=== PATIENT | male | born 1965 | race Hispanic/Latino ===

== ENCOUNTER 2017-06-23 19:24 | Inpatient (IN) | payer MEDICAID ==
--- NOTE | 2017-06-23 21:26 | C.PDOC ---
History Of Present Illness <Marcy Devries - Last Filed: 06/23/17 21:51> <Moriah Gerardo - Last Filed: 06/24/17 05:23> CC: "Alcohol detox" HPI: 51 year old male with past medical history of HTN as a child presents to the ED because he would like to detox from alcohol. Patient states he has been an alcoholic for about 30 years but was sober for about 5 years. He states he recently started binge drinking again these past few weeks. His last drink was this morning. He states he drank about 6 cans of malt liquor and 1 bottle of vodka. He stated he could not quantify on average how much he drinks. He denies seizures from withdrawal but states he has been to the hospital due to his drinking in the past because he has been found passed out. He states he has been vomiting today the last time he vomited was about 15 minutes ago. He denies blood in his vomit. He denies chest pain, palpitations, shortness of breath, diarrhea or constipation. PMD: denies Past Medical History: HTN as a child - has never been told he has HTN as an adult that he is aware of Past Surgical History: bilateral retinal detachment surgery Medications: vitamins. 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 (Marcy Devries) History Per: Patient History/Exam Limitations: no limitations Onset/Duration Of Symptoms: Hrs Current Symptoms Are (Timing): Still Present Modifying Factor(s): Alcohol <Marcy Devries - Last Filed: 06/23/17 21:51> <Moriah Gerardo - Last Filed: 06/24/17 05:23> Chief Complaint (Nursing): Substance Abuse Past Medical History - Medical History PMH: HTN - Social History Hx Alcohol Use: Yes Hx Substance Use: No <Marcy Devries - Last Filed: 06/23/17 21:51> Surgical History: No Surg Hx Family History: States: No Known Family Hx - Social History Hx Alcohol Use: Yes Hx Substance Use: No - Immunization History Hx Tetanus Toxoid Vaccination: No Hx Influenza Vaccination: No Hx Pneumococcal Vaccination: No <Moriah Gerardo - Last Filed: 06/24/17 05:23> Vital Signs: Last Vital Signs Temp 98.1 F 06/23/17 20:49 Pulse 113 H 06/23/17 20:49 Resp 20 06/23/17 20:49 BP 145/96 H 06/23/17 20:49 Pulse Ox 97 06/23/17 21:55 Review Of Systems Constitutional: Negative for: Fever, Chills Cardiovascular: Negative for: Chest Pain, Palpitations Respiratory: Negative for: Cough, Shortness of Breath Gastrointestinal: Positive for: Nausea, Vomiting. Negative for: Diarrhea, Constipation Genitourinary: Negative for: Dysuria Neurological: Negative for: Seizures, Dizziness <Marcy Devries - Last Filed: 06/23/17 21:51> Physical Exam - Physical Exam Appears: In Acute Distress Skin: Normal Color Head: Atraumatic Eye(s): bilateral: Normal Inspection, PERRL, EOMI Oral Mucosa: Dry Tongue: Normal Appearing, Other (negative for tongue fisculations ) Cardiovascular: Rhythm Regular, Other (tachycardia ) Respiratory: Normal Breath Sounds, No Decreased Breath Sounds, No Accessory Muscle Use, No Rales, No Rhonchi, No Stridor, No Wheezing Gastrointestinal/Abdominal: Normal Exam, Bowel Sounds (normal), Soft, No Tenderness, No Distention, No Guarding, No Ascites Extremity: No Tenderness, No Pedal Edema, No Calf Tenderness Neurological/Psych: Oriented x3, Normal Speech, Normal Cognition, Normal Cranial Nerves, Eyes Open With Command <Marcy Devries - Last Filed: 06/23/17 21:51> ED Course And Treatment O2 Sat by Pulse Oximetry: 97 <Marcy Devries S. - Last Filed: 06/23/17 21:51> - Laboratory Results Result Diagrams: 06/23/17 22:47 06/23/17 22:47 <Moriah Gerardo - Last Filed: 06/24/17 05:23> Medical Decision Making <Marcy Devries - Last Filed: 06/23/17 21:51> <Moriah Gerardo - Last Filed: 06/24/17 05:23> Medical Decision Making: Alcohol Withdrawal - f/u cbc, cmp, mag, phos - f/u EKG - 1 bag of Mag ordered - NS 1L bolus ordered - Ativan 1mg IV - Banana bag @250cc/hr - Compazine 10mg IV (Marcy Devries) Disposition <Marcy Devries - Last Filed: 06/23/17 21:51> - Disposition Disposition Time: 05:23 <Moriah Gerardo - Last Filed: 06/24/17 05:23> - Disposition Disposition: HOSPITALIZED Condition: FAIR - Clinical Impression Clinical Impression: Alcohol abuse, Alcohol withdrawal
[2017-06-23] MEDS ORDERED: Multivitamin (MVI) 10 ML, Thiamine 100 MG, Folic Acid 1 MG in Sodium Chloride 0.9% 1,00... IV ONE (21:31)
[2017-06-23] MEDS ORDERED: Magnesium Sulfate 1 gm in D5W 1 GM/100 ML BAG IVPB ONE ×2 (21:32→22:22)
[2017-06-23] MEDS ORDERED: Sodium Chloride 0.9% 1,000 ML IV ONE (21:51)
[2017-06-23 22:52] LABS: BASO % 0.5 % (0.0-2.0); HEMOGLOBIN 15.4 g/dL (12.0-18.0); LYMPH # 1.2 K/uL (1.0-4.3); LYMPH % 21.6 % (20.0-40.0); MEAN CELL VOLUME 88.7 fL (80.0-94.0); MEAN CORPUSCULAR HEMOGLOBIN 31.5 pg (27.0-31.0); MEAN CORPUSCULAR HGB CONC 35.5 g/dL (33.0-37.0); MEAN PLATELET VOLUME 7.2 fL (7.2-11.7); MONO # 0.4 K/uL (0.0-0.8); MONO % 6.7 % (0.0-10.0); NEUT % 71.2 % (50.0-75.0); RBC 4.88 Mil/uL (4.40-5.90); RED CELL DISTRIBUTION WIDTH 13.1 % (11.5-14.5); WHITE BLOOD COUNT 5.7 K/uL (4.8-10.8)
[2017-06-23 23:07] LABS: ALB/GLOB RATIO 1.2 (1.0-2.1); ALT/SGPT 100 U/L (21-72); AST/SGOT 98 U/L (17-59); BLOOD UREA NITROGEN 14 mg/dL (9-20); CALCIUM 8.3 mg/dl (8.6-10.4); GFR AFRICAN-AMERICAN > 60; GFR NON-AFRICAN AMERICAN > 60; MAGNESIUM 1.9 mg/dL (1.6-2.3)
[2017-06-24] MEDS: Multivitamin (MVI) 10 ML, Thiamine 100 MG, Folic Acid 1 MG in Sodium Chloride 0.9% 1,00... IV ONE ×2 (02:11→10:50)
--- NOTE | 2017-06-24 04:37 | CP.PCM.HP ---
<RosalineShayy coulterri LavonneAylin - Last Filed: 06/24/17 04:53> History of Present Illness - History of Present Illness History of Present Illness: HPI: Patient is a 51 year old male with a past medical history of HTN and alcoholism, who presents for alcohol detox. Patient reports drinking "6-12 cans of malt liquor and a couple of pints of vodka" daily. He has been drinking heavily for over 30 years, but has increased his drinking over the past 2 weeks. His last drink was the in early morning before going to the hospital. Patient's longest period of sobriety was 5 years. Patient reports going to rehab approximately 8 times in the past. Patient admits to nausea, vomiting, constipation, and feeling "out of it". Patient denies tremors, hallucinations, chest pain, abdominal pain, shortness of breath, palpitations, headaches, fevers, chills. PMD: none PMHx: HTN (does not take medication because he does not like the way he feels); retinal detachment x2 Surg Hx: retinal detachment x2 (1978); knee surgery (1977) FamHx: denies SocHx: denies tobacco and drug use; heavy ETOH user for 30+ years. 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 Allergies: NKDA Medications: vitamins and supplements (vit C, multivitamins, fish oil, CoQ10) Present on Admission - Present on Admission Any Indicators Present on Admission: No Review of Systems - Constitutional Constitutional: absent: Chills, Fever, Headache, Weakness - EENT Ears: absent: Dizziness - Cardiovascular Cardiovascular: absent: Chest Pain, Dyspnea, Lightheadedness, Palpitations - Respiratory Respiratory: absent: Cough, Dyspnea - Gastrointestinal Gastrointestinal: Constipation, Nausea, Vomiting. absent: Abdominal Pain, Diarrhea - Genitourinary Genitourinary: absent: Dysuria, Hematuria, Urinary Frequency - Integumentary Integumentary: absent: Rash - Neurological Neurological: absent: Dizziness, Headaches, Tremor, Weakness - Psychiatric Psychiatric: absent: Hallucinations Past Patient History - Past Social History Smoking Status: Never Smoked - CARDIAC Hx Hypertension: Yes - PSYCHIATRIC Hx Substance Use: No - ANESTHESIA Hx Anesthesia: No Meds Allergies/Adverse Reactions: Allergies Allergy/AdvReac Type Severity Reaction Status Date / Time No Known Allergies Allergy Verified 06/23/17 20:49 Physical Exam - Head Exam Head Exam: ATRAUMATIC, NORMAL INSPECTION - Eye Exam Eye Exam: EOMI, Normal appearance, PERRL - ENT Exam ENT Exam: Mucous Membranes Dry - Respiratory Exam Respiratory Exam: Clear to Auscultation Bilateral, NORMAL BREATHING PATTERN. absent: Rhonchi, Wheezes, Respiratory Distress, Stridor - Cardiovascular Exam Cardiovascular Exam: Tachycardia, +S1, +S2 - GI/Abdominal Exam GI & Abdominal Exam: Normal Bowel Sounds, Soft. absent: Distended, Firm, Tenderness - Extremities Exam Extremities exam: Positive for: normal inspection, pedal pulses present. Negative for: pedal edema - Neurological Exam Neurological exam: Oriented x3 Additional comments: Tremors - Psychiatric Exam Psychiatric exam: Flat Affect - Skin Skin Exam: Dry, Intact, Normal Color, Warm Results - Vital Signs Recent Vital Signs: Last Vital Signs Temp 98.1 F 06/23/17 20:49 Pulse 113 H 06/23/17 20:49 Resp 20 06/23/17 20:49 BP 145/96 H 06/23/17 20:49 Pulse Ox 97 06/23/17 21:55 - Labs Result Diagrams: 06/23/17 22:47 06/23/17 22:47 Labs: Laboratory Results - last 24 hr 06/23/17 06/23/17 22:47 22:47 WBC 5.7 RBC 4.88 Hgb 15.4 Hct 43.3 MCV 88.7 MCH 31.5 H MCHC 35.5 RDW 13.1 Plt Count 185 MPV 7.2 Neut % (Auto) 71.2 Lymph % (Auto) 21.6 [place] % (Auto) 6.7 Eos % (Auto) 0.0 Baso % (Auto) 0.5 Neut # (Auto) 4.0 Lymph # (Auto) 1.2 [place] # (Auto) 0.4 Eos # (Auto) 0.0 Baso # (Auto) 0.0 Sodium 135 Potassium 3.3 L Chloride 91 L Carbon Dioxide 25 Anion Gap 23 H BUN 14 Creatinine 0.8 Est GFR ( Amer) > 60 Est GFR (Non-Af Amer) > 60 Random Glucose 128 H Calcium 8.3 L Phosphorus 4.0 Magnesium 1.9 Total Bilirubin 0.6 AST 98 H ALT 100 H Alkaline Phosphatase 98 Total Protein 7.5 Albumin 4.0 Globulin 3.5 Albumin/Globulin Ratio 1.2 Assessment & Plan (1) Alcohol abuse Assessment and Plan: [facility] protocol Psychiatry consulted for detox, help appreciated In the ED, Mg 1gm IV, Zofran 4mg IV, Prochlorperazine 10mg IV, IVF given once. Ativan 5-day taper started on 06/24/16 Banana Bag Zofran 4mg IV Q6 prn for nausea/vomiting NS@100mls/hr Aspiration precaution Fall precaution Status: Acute (2) Prophylactic measure Assessment and Plan: SCDs Protonix 40mg PO daily Aspiration/fall precaution Regular diet Status: Acute <Tristan Johnson - Last Filed: 06/24/17 06:31> Results - Vital Signs Recent Vital Signs: Last Vital Signs Temp 98 F 06/24/17 06:17 Pulse 100 H 06/24/17 06:17 Resp 20 06/24/17 06:17 BP 149/82 06/24/17 06:17 Pulse Ox 93 L 06/24/17 06:17 - Labs Result Diagrams: 06/24/17 05:31 06/24/17 05:31 Labs: Laboratory Results - last 24 hr 06/23/17 06/23/17 06/24/17 22:47 22:47 05:31 WBC 5.7 5.4 RBC 4.88 4.47 Hgb 15.4 13.8 Hct 43.3 39.6 MCV 88.7 88.5 MCH 31.5 H 30.9 MCHC 35.5 34.9 RDW 13.1 13.0 Plt Count 185 151 MPV 7.2 7.0 L Neut % (Auto) 71.2 64.9 Lymph % (Auto) 21.6 24.7 [place] % (Auto) 6.7 9.9 Eos % (Auto) 0.0 0.1 Baso % (Auto) 0.5 0.4 Neut # (Auto) 4.0 3.5 Lymph # (Auto) 1.2 1.3 [place] # (Auto) 0.4 0.5 Eos # (Auto) 0.0 0.0 Baso # (Auto) 0.0 0.0 Sodium 135 Potassium 3.3 L Chloride 91 L Carbon Dioxide 25 Anion Gap 23 H BUN 14 Creatinine 0.8 Est GFR ( Amer) > 60 Est GFR (Non-Af Amer) > 60 Random Glucose 128 H Calcium 8.3 L Phosphorus 4.0 Magnesium 1.9 Total Bilirubin 0.6 AST 98 H ALT 100 H Alkaline Phosphatase 98 Total Protein 7.5 Albumin 4.0 Globulin 3.5 Albumin/Globulin Ratio 1.2 06/24/17 05:31 WBC RBC Hgb Hct MCV MCH MCHC RDW Plt Count MPV Neut % (Auto) Lymph % (Auto) [place] % (Auto) Eos % (Auto) Baso % (Auto) Neut # (Auto) Lymph # (Auto) [place] # (Auto) Eos # (Auto) Baso # (Auto) Sodium 135 Potassium 3.5 L Chloride 95 L Carbon Dioxide 27 Anion Gap 17 BUN 13 Creatinine 0.7 L Est GFR ( Amer) > 60 Est GFR (Non-Af Amer) > 60 Random Glucose 106 Calcium 8.0 L Phosphorus Magnesium Total Bilirubin 0.8 AST 79 H ALT 85 H Alkaline Phosphatase 82 Total Protein 6.6 Albumin 3.5 Globulin 3.1 Albumin/Globulin Ratio 1.1 Assessment & Plan - Date & Time Date: 06/24/17 (I have seen and examined the patient. I agree with the findings and plan of care as documented by Dr. Faustin. Patient with alcohol abuse. [facility] protocol. Consult to psych for eventual detox. Monitor for acute changes.) Time: 06:30 Attending/Attestation - Attestation I have personally seen and examined this patient.: Yes I have fully participated in the care of the patient.: Yes I have reviewed all pertinent clinical information: Yes
[2017-06-24 05:45] LABS: ALB/GLOB RATIO 1.1 (1.0-2.1); ALBUMIN 3.5 g/dL (3.5-5.0); ALT/SGPT 85 U/L (21-72); AST/SGOT 79 U/L (17-59); BLOOD UREA NITROGEN 13 mg/dL (9-20); GFR AFRICAN-AMERICAN > 60; GFR NON-AFRICAN AMERICAN > 60
[2017-06-24 05:51] LABS: BASO % 0.4 % (0.0-2.0); EOS % 0.1 % (0.0-4.0); HEMOGLOBIN 13.8 g/dL (12.0-18.0); LYMPH # 1.3 K/uL (1.0-4.3); LYMPH % 24.7 % (20.0-40.0); MEAN CELL VOLUME 88.5 fL (80.0-94.0); MEAN CORPUSCULAR HEMOGLOBIN 30.9 pg (27.0-31.0); MEAN CORPUSCULAR HGB CONC 34.9 g/dL (33.0-37.0); MONO # 0.5 K/uL (0.0-0.8); MONO % 9.9 % (0.0-10.0); NEUT # 3.5 K/uL (1.8-7.0); NEUT % 64.9 % (50.0-75.0); NRBC % 0.1 % (0.0-2.0); RBC 4.47 Mil/uL (4.40-5.90); WHITE BLOOD COUNT 5.4 K/uL (4.8-10.8)
[2017-06-24] MEDS ORDERED: Potassium Chloride 20 mEq ER Tab PO ONE (07:20)
[2017-06-24] MEDS: Enoxaparin 40 mg Syringe SC SCH (09:33)
[2017-06-24] MEDS: Multiple Vitamins Tab PO SCH (09:33)
[2017-06-24] MEDS: Pantoprazole 40 mg EC Tab PO SCH (09:33)
[2017-06-24 10:41] LABS: HEPATITIS B SURFACE AG Negative (NEGATIVE)
[2017-06-24 10:47] LABS: HEPATITIS A IGM NEGATIVE (NEGATIVE); HEPATITIS B CORE AB NEGATIVE (NEGATIVE)
[2017-06-24 10:59] LABS: HEPATITIS C ANTIBODY NEGATIVE (NEGATIVE)
--- NOTE | 2017-06-24 11:39 | CP.PCM.PN ---
Subjective - Date & Time of Evaluation Date of Evaluation: 06/24/17 Time of Evaluation: 11:30 - Subjective Subjective: Medical Attending Note: Patient seen and examined. Patient denies headache, denies chest pain, denies palpitations, denies cough, denies abdominal pain, reports constipation, denies tremors, reports last drink was 24 hours ago, denies history of withdrawal seizures, denies BRBPR. Objective - Vital Signs/Intake and Output Vital Signs (last 24 hours): Temp Pulse Resp BP Pulse Ox 98.2 F 109 H 21 155/84 H 96 06/24/17 09:10 06/24/17 09:10 06/24/17 09:10 06/24/17 09:10 06/24/17 09:10 - Medications Medications: Current Medications Enoxaparin Sodium (Lovenox) 40 mg SC DAILY [facility] Last Admin: 06/24/17 09:33 Dose: 40 mg Folic Acid (Folic Acid) 1 mg PO DAILY [facility] Last Admin: 06/24/17 09:32 Dose: 1 mg Multivitamins/Vitamin C 10 ml/Thiamine HCl 100 mg/ Folic Acid 1 mg/ Sodium Chloride 1,011.2 mls @ 100 mls/hr IV .Q10H7M ONE Stop: 06/24/17 20:06 Last Admin: 06/24/17 10:50 Dose: 100 mls/hr Lorazepam (Ativan) 2 mg IVP Q4H [facility] PRN Reason: Taper Stop: 06/29/17 01:59 Last Admin: 06/24/17 09:33 Dose: 2 mg Multivitamins (Hexavitamin) 1 tab PO DAILY [facility] Last Admin: 06/24/17 09:33 Dose: 1 tab Ondansetron HCl (Zofran Inj) 4 mg IVP Q6 PRN PRN Reason: Nausea/Vomiting Pantoprazole Sodium (Protonix Ec Tab) 40 mg PO DAILY [facility] Last Admin: 06/24/17 09:33 Dose: 40 mg Thiamine HCl (Vitamin B1 Tab) 100 mg PO DAILY [facility] Last Admin: 06/24/17 09:32 Dose: 100 mg - Labs Labs: 06/24/17 05:31 06/24/17 05:31 - Constitutional Appears: Non-toxic, No Acute Distress - Head Exam Head Exam: NORMAL INSPECTION - Eye Exam Eye Exam: EOMI - ENT Exam ENT Exam: Mucous Membranes Moist - Respiratory Exam Respiratory Exam: Clear to Ausculation Bilateral, NORMAL BREATHING PATTERN. absent: Rales, Rhonchi, Wheezes - Cardiovascular Exam Cardiovascular Exam: REGULAR RHYTHM, +S1, +S2 - GI/Abdominal Exam GI & Abdominal Exam: Soft, Normal Bowel Sounds. absent: Distended, Firm, Guarding, Rigid, Tenderness, Rebound Additional comments: negative caballero's sign - Extremities Exam Extremities Exam: absent: Pedal Edema, Tenderness - Neurological Exam Neurological Exam: Alert, Awake, Oriented x3 Neuro motor strength exam: Left Upper Extremity: 5, Right Upper Extremity: 5, Left Lower Extremity: 5, Right Lower Extremity: 5 - Psychiatric Exam Psychiatric exam: Normal Affect, Normal Mood - Skin Skin Exam: Dry, Normal Color, Warm Assessment and Plan (1) Alcohol abuse Assessment & Plan: Ativan taper (Today is Day 1; active since 06/24/17) MVI 1 tab PO daily Folic acid 1 tab PO daily Thiamine 100mg PO daily Psychiatry on board Status: Acute (2) Alcohol withdrawal Assessment & Plan: Ativan taper (Today is Day 1; active since 06/24/17) MVI 1 tab PO daily Folic acid 1 tab PO daily Thiamine 100mg PO daily Psychiatry on board Status: Acute (3) Transaminitis Assessment & Plan: Hepatitis panel pending Abdominal US pending Status: Acute (4) Hypertension Assessment & Plan: Required Hydralazine 10mg IVX1 Start Hydralazine 10mg IVPQ6H PRN SBP<160 Status: Chronic (5) Hypokalemia Assessment & Plan: replete Status: Acute (6) Prophylactic measure Assessment & Plan: Lovenox 40mg subq daily Protonix 40mg PO daily Status: Acute
--- NOTE | 2017-06-24 15:12 | PCM.PSYCH ---
Initial Psychiatric Evaluation - Initial Psychiatric Evaluation Type of Admission: Voluntary Legal Status: Capacity Chief Complaint (in patient's own words): "I m feeling depressed." History of Present Illness and Precipitating Events: Patient is a 51 year old unemployed male, who lives in [place] with his partner, currently unemployed, came to the hospital seeking detox. Pt reports that he has been an alcoholic for about 30 years but was sober for about 5 years. He states he recently started binge drinking again these past few weeks. His last drink was yesterday morning. He states he drank about 6 cans of malt liquor and 1 bottle of vodka. He stated he could not quantify on average how much he drinks. He denies seizures from withdrawal but states he has been to the hospital due to his drinking in the past because he has been found passed out. He reports withdrawal symptoms from drinking including nausea , sweating, anxiety, tremors and headaches. Patient also reports depressed mood and feelings of hopelessness and helplessness. He also reports poor sleep and poor appetite. Patient remained guarded about suicidal ideations and any past suicidal history. However he denied any auditory or visual hallucinations or any persecutory delusions. Spoke with the partner, as per him, patient is becoming increasingly depressed and he is drinking increasing amount of alcohol and he is dangerous to himself. PMH: HTN Current Medications: Active Medications Generic Name Dose Route Start Last Admin Trade Name Freq PRN Reason Stop Dose Admin Enoxaparin Sodium 40 mg 06/24/17 10:00 06/24/17 09:33 Lovenox SC 40 mg DAILY CARYL Administration Folic Acid 1 mg 06/24/17 10:06/24/17 09:32 Folic Acid PO 1 mg DAILY CARYL Administration Hydralazine HCl 10 mg 06/24/17 12:00 06/24/17 13:49 Apresoline IVP 10 mg Q6H PRN Administration Systolic Blood Pressure Multivitamins/Vitamin C 10 ml/ 1,011.2 mls @ 100 mls/hr 06/24/17 10: 10:50 Thiamine HCl 100 mg/ Folic IV 06/24/17 20:06 100 mls/hr Acid 1 mg/ Sodium Chloride .Q10H7M ONE Administration Lorazepam 2 mg 06/24/17 02:00 06/24/17 13:48 Ativan IVP 06/29/17 01:59 2 mg Q4H CARYL Administration Taper Multivitamins 1 tab 06/24/17 10:00 06/24/17 09:33 Hexavitamin PO 1 tab DAILY CARYL Administration Ondansetron HCl 4 mg 06/24/17 01:48 Zofran Inj IVP Q6 PRN Nausea/Vomiting Pantoprazole Sodium 40 mg 06/24/17 10:00 06/24/17 09:33 Protonix Ec Tab PO 40 mg DAILY CARYL Administration Thiamine HCl 100 mg 06/24/17 10:00 06/24/17 09:32 Vitamin B1 Tab PO 100 mg DAILY CARYL Administration Past Psychiatric History - Past Psychiatric History Previous Treatment History: None Pertinent Medical Hx (Current Medical&Sleep Prob, Allergies): Allergies Allergy/AdvReac Type Severity Reaction Status Date / Time No Known Allergies Allergy Verified 06/23/17 20:49 No Known Home Med 06/23/17 Review of Systems - Review of Systems Systems not reviewed;Unavailable: Acuity of Condition All systems: reviewed and no additional remarkable complaints except - Neurological Neurological: UNREMARKABLE - Psychiatric Psychiatric: As Per HPI, Anxiety, Depression, Difficulty Concentrating, Hopelessness Mental Status Examination - Personal Presentation Personal Presentation: Looks stated age - Affect Affect: Constricted, Flat, Depressed - Motor Activity Motor Activity: Calm - Reliability in Providing Information Reliability in Providing Information: Poor, due to altered mood - Speech Speech: Organized - Mood Mood: Depressed, Anxious - Formal Thought Process Formal Thought Process: No Impairment - Obsessions/Compulsions Obsessions: No Compulsions: No - Cognitive Functions Orientation: Person, Place, Situation, Time Sensorium: Drowsy Attention/Concentration: Easily distracted Abstract Thinking: [place] Estimate of Intelligence: Below average Judgement: Imparied, as evidence by: Poor judgement, Imparied, as evidence by: Lack of insight into illness - Risk Risk: Withdrawal, Diminished functioning - Strength & Assets Inventory Strength & Assets Inventory: Family support DSM 5 DX - DSM 5 DSM 5 Diagnosis: Alcohol use d/o -severe Alcohol withdrawal- uncomplicated 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 - Recommended/Plan of Treatment Treatment Recommendations and Plan of Treatment: Alcohol use d/o -severe -CBT -Psychoeducation -Supportive therapy, individual therapy -Use [place] for abstinence Alcohol withdrawal- uncomplicated -CBT -Psychoeducation -Supportive therapy, individual therapy -Ativan Taper -Folic acid/thiamine/multivitamin 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
--- NOTE | 2017-06-24 15:32 | US ---
HISTORY: transaminits COMPARISON: None. TECHNIQUE: Sonographic evaluation of the abdomen. FINDINGS: LIVER: Measures 16.8 cm. Diffusely increased echogenicity of the liver parenchyma. Consistent with fatty infiltration. Smooth contour. No mass. No biliary ductal dilatation. GALLBLADDER: Unremarkable. No gallstones. COMMON BILE DUCT: Measures 4 mm. No stones. No dilatation. PANCREAS: Unremarkable as visualized. No mass. No ductal dilatation. RIGHT KIDNEY: Measures 11.2cm. Normal echogenicity. No calculus, mass, or hydronephrosis. LEFT KIDNEY: Measures 10.8cm. Normal echogenicity. No calculus or hydronephrosis. Simple cortical cyst mid left kidney, 1.2 x 1.3 x 1.5 cm. SPLEEN: Normal in size and contour. No mass. AORTA: No aneurysmal dilatation. IVC: Unremarkable. OTHER FINDINGS: None. IMPRESSION: Fatty infiltration of the liver. 1.5 cm simple left renal cortical cyst. No additional abnormality.
[2017-06-24] MEDS ORDERED: Aluminum Hydroxide/Magnesium Hydroxide Susp (30 mL) PO PRN (16:01)
--- NOTE | 2017-06-24 22:36 | PCM.BM ---
Treatment Plan Problems - Problems identified on initial assessmt Depression Date Initiated: 06/24/17 Time Initiated: 21:00 Assessment reference: NA Status: Active Substance Abuse Date Initiated: 06/24/17 Time Initiated: 21:00 Assessment reference: NA Status: Active Treatment assets and liabiliti Patient Assests: cooperative, educated, self-reliant, ADL independent, negotiates basic needs, cognitively intact Patient Liabilities: substance abuse (Alcohol) - Milieu Protocol Maintain good personal hygiene: daily Encourage regular showers, every shift Remind patient to perform daily oral care, every shift Assist patient to perform ADL's Conduct patient checks and document Observation sheet: Q15 minutes Maintain personal safety: every shift Educate patient to report safety concerns to staff, every shift Monitor environment for contraband/sharps Medication safety: Monitor for expected outcome, potential side effects: every shift, Assess barriers to learning: every shift, Assess readiness for medication education: every shift Milieu Narrative: Alcohol use d/o -severe -CBT -Psychoeducation -Supportive therapy, individual therapy -Use [place] for abstinence Alcohol withdrawal- uncomplicated -CBT -Psychoeducation -Supportive therapy, individual therapy -Ativan Taper -Folic acid/thiamine/multivitamin 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 Discharge/Continuing Care - Treatment Team Participation Patient/Family/SO Statement: Alcohol use d/o -severe -CBT -Psychoeducation -Supportive therapy, individual therapy -Use [place] for abstinence Alcohol withdrawal- uncomplicated -CBT -Psychoeducation -Supportive therapy, individual therapy -Ativan Taper -Folic acid/thiamine/multivitamin 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
--- NOTE | 2017-06-24 23:07 | CARD ---
APPROVED REPORT EKG Measurement Heart [id number] <Conclusion> Sinus tachycardia Abnormal ECG
[2017-06-25 07:40] LABS: BASO % 0.2 % (0.0-2.0); EOS % 0.3 % (0.0-4.0); HEMOGLOBIN 13.9 g/dL (12.0-18.0); LYMPH # 0.8 K/uL (1.0-4.3); LYMPH % 14.3 % (20.0-40.0); MEAN CELL VOLUME 88.4 fL (80.0-94.0); MEAN CORPUSCULAR HEMOGLOBIN 31.2 pg (27.0-31.0); MEAN CORPUSCULAR HGB CONC 35.2 g/dL (33.0-37.0); MEAN PLATELET VOLUME 7.4 fL (7.2-11.7); MONO # 0.5 K/uL (0.0-0.8); MONO % 8.9 % (0.0-10.0); NEUT # 4.2 K/uL (1.8-7.0); NEUT % 76.3 % (50.0-75.0); NRBC % 0.1 % (0.0-2.0); RBC 4.46 Mil/uL (4.40-5.90); RED CELL DISTRIBUTION WIDTH 12.9 % (11.5-14.5); WHITE BLOOD COUNT 5.5 K/uL (4.8-10.8)
[2017-06-25 07:56] LABS: ALB/GLOB RATIO 1.2 (1.0-2.1); ALBUMIN 3.7 g/dL (3.5-5.0); ALT/SGPT 81 U/L (21-72); AST/SGOT 73 U/L (17-59); BLOOD UREA NITROGEN 13 mg/dL (9-20); CALCIUM 8.4 mg/dl (8.6-10.4); GFR AFRICAN-AMERICAN > 60; GFR NON-AFRICAN AMERICAN > 60
[2017-06-25] MEDS: Pantoprazole 40 mg EC Tab PO SCH (09:49)
[2017-06-25] MEDS: Multiple Vitamins Tab PO SCH (09:49)
[2017-06-25] MEDS ORDERED: Potassium Chloride 20 mEq ER Tab PO ONE ×2 (09:55→11:00)
--- NOTE | 2017-06-25 10:29 | CP.PCM.PN ---
Subjective - Date & Time of Evaluation Date of Evaluation: 06/25/17 Time of Evaluation: 10:20 - Subjective Subjective: Medical Attending Note (consult): Patient seen and examined this morning, Patient reports he is feeling better. patient reports denies headache, denies chest pain, denies palpitations, denies abdominal pain, denies nausea, denies vomitting, denies dysuria. Patient's blood pressure elevated, however, he has completed jumping jacks before and drank caffeinated coffee when he usually drinks green tea, decaf. Increased Norvasc 10mg PO daily Objective - Vital Signs/Intake and Output Vital Signs (last 24 hours): Temp Pulse Resp BP Pulse Ox 98.4 F 96 H 20 145/83 97 06/24/17 17:29 06/24/17 17:29 06/24/17 17:29 06/24/17 17:29 06/24/17 17:29 - Medications Medications: Current Medications Al Hydrox/Mg Hydrox/Simethicone (Maalox 30 Ml) 30 ml PO TID PRN PRN Reason: Indigestion / Heartburn Amlodipine Besylate (Norvasc) 10 mg PO DAILY [facility] Clonidine HCl (Catapres) 0.1 mg PO Q4H PRN PRN Reason: Symptoms of alcohol withdrawl Enoxaparin Sodium (Lovenox) 40 mg SC DAILY [facility] Last Admin: 06/24/17 09:33 Dose: 40 mg Folic Acid (Folic Acid) 1 mg PO DAILY [facility] Last Admin: 06/25/17 09:49 Dose: 1 mg Gabapentin (Neurontin) 100 mg PO TID [facility] Last Admin: 06/25/17 09:49 Dose: 100 mg Loperamide HCl (Imodium) 2 mg PO Q8 PRN PRN Reason: Diarrhea Lorazepam (Ativan) 1 mg PO Q4H PRN PRN Reason: Symptoms of alcohol withdrawl Last Admin: 06/25/17 01:30 Dose: 1 mg Lorazepam (Ativan) 1 mg PO Q4 [facility] PRN Reason: Taper Stop: 06/29/17 15:59 Last Admin: 06/25/17 08:13 Dose: 1 mg Multivitamins (Hexavitamin) 1 tab PO DAILY [facility] Last Admin: 06/25/17 09:49 Dose: 1 tab Ondansetron HCl (Zofran Tab) 4 mg PO Q8 PRN PRN Reason: Nausea/Vomiting Last Admin: 06/24/17 19:44 Dose: 4 mg Pantoprazole Sodium (Protonix Ec Tab) 40 mg PO DAILY [facility] Last Admin: 06/25/17 09:49 Dose: 40 mg Sertraline HCl (Zoloft) 50 mg PO DAILY [facility] Last Admin: 06/25/17 09:49 Dose: 50 mg Thiamine HCl (Vitamin B1 Tab) 100 mg PO DAILY [facility] Last Admin: 06/25/17 09:49 Dose: 100 mg Trazodone HCl (Desyrel) 50 mg PO HS PRN PRN Reason: Insomnia - Labs Labs: 06/25/17 07:34 06/25/17 07:34 - Constitutional Appears: Non-toxic, No Acute Distress - Head Exam Head Exam: NORMAL INSPECTION - Eye Exam Eye Exam: EOMI - ENT Exam ENT Exam: Mucous Membranes Moist - Respiratory Exam Respiratory Exam: Clear to Ausculation Bilateral, NORMAL BREATHING PATTERN. absent: Rales, Rhonchi, Wheezes - Cardiovascular Exam Cardiovascular Exam: REGULAR RHYTHM, +S1, +S2 - GI/Abdominal Exam GI & Abdominal Exam: Soft, Normal Bowel Sounds. absent: Distended, Firm, Guarding, Rigid, Tenderness, Rebound - Extremities Exam Extremities Exam: absent: Pedal Edema, Tenderness - Back Exam Back Exam: absent: CVA tenderness (L), CVA tenderness (R) - Neurological Exam Neurological Exam: Alert, Awake, Oriented x3 - Psychiatric Exam Psychiatric exam: Normal Affect, Normal Mood - Skin Skin Exam: Intact, Normal Color, Warm Assessment and Plan (1) Alcohol abuse Status: Acute (2) Alcohol withdrawal Status: Acute (3) Transaminitis Status: Acute (4) Hypertension Status: Chronic (5) Hypokalemia Status: Acute (6) Prophylactic measure Status: Acute Attending/Attestation - Attestation I have personally seen and examined this patient.: Yes I have fully participated in the care of the patient.: Yes I have reviewed all pertinent clinical information, including history, physical exam and plan: Yes Notes (Text): Assessment and Plan (1) Alcohol abuse Assessment & Plan: Ativan taper (Today is Day 2; active since 06/24/17) MVI 1 tab PO daily Folic acid 1 tab PO daily Thiamine 100mg PO daily Psychiatry on board Status: Acute (2) Alcohol withdrawal Assessment & Plan: Ativan taper (Today is Day 2; active since 06/24/17) MVI 1 tab PO daily Folic acid 1 tab PO daily Thiamine 100mg PO daily Psychiatry on board Status: Acute (3) Transaminitis Assessment & Plan: Hepatitis panel: negative Abdominal US: atty infiltration of the liver. 1.5cm simple left renal cortical cyst. 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
[2017-06-25] MEDS: Enoxaparin 40 mg Syringe SC SCH (10:48)
--- NOTE | 2017-06-25 18:08 | PCM.PYCHPN ---
Psychiatric Progress Note - Psychiatric Progress Note Patient seen today, length of contact: 15 minutes Patient Chief Complaint: "I have withdrawal symptoms" Problems Identified/Issues Discussed: Pt was seen and evaluated. Chart reviewed and nurse input received. Pt's blood BP is unstable. He reported AH and VH. He has grandiose delusion that he has had magical power. He reported anxiety symptoms, etoh withdrawal symptoms. He needs stabilization on medication. He denied SI, HI, intent or plan. Pt is transferred to medical floor for BP stabilization. DSM 5 Symptoms Update: MDD etoh use disorder, severe, with withdrawal symptoms, r/o DT Medication Change: Yes (d/c ativan, start librium) Medical Record Reviewed: Yes Mental Status Examination - Cognitive Function Orientation: Person, Place, Situation, Time Memory: Intact Attention: Poor Concentration: Poor Association: WNL Fund of Knowledge: WNL Decription of patient's judgement and insights: limited/limited - Mood Mood: Depressed, Anxious - Affect Affect: Constricted, Flat, Depressed - Speech Speech: Slurred - Formal Thought Process Formal Thought Process: Circumstantial Psychotic Thoughts and Behaviors: +ve Auditory hallucinations - Suicidal Ideation Suicidal Ideation: No - Homicidal Ideation Homicidal Ideation: No Goal/Treatment Plan - Goal/Treatment Plan Need for Continued Stay: Severe depression anxiety, Discharge may exacerbated symptoms Progress Toward Problem(s) and Goals/Treatment Plan: Continue current treatment as per primary team. Psychoeducation provided regarding diagnosis, treatment, meds benefits, side effects, risk and alternative choices. Pt verbalized understanding and agree with the treatment plan. Therapy in milieu. [facility] medicine team Estimated Date of D/C: 06/29/17
--- NOTE | 2017-06-26 01:05 | CP.PCM.PN ---
<Graham Wilda - Last Filed: 06/26/17 01:02> Subjective - Date & Time of Evaluation Date of Evaluation: 06/26/17 Time of Evaluation: 01:02 - Subjective Subjective: Medicine Note for Hospitalist Service- Dr. Hamlin Patient was seen and examined at bedside. No acute complaints. Patient is resting in bed comfortably. Denied fever, chills, headache, chest pain, SOB, abdominal pain, n/v/d/c, or urinary symptoms. Objective - Vital Signs/Intake and Output Vital Signs (last 24 hours): Temp Pulse Resp BP Pulse Ox 97.4 F L 98 H 18 158/99 H 100 06/25/17 22:18 06/25/17 22:18 06/25/17 22:18 06/25/17 22:18 06/25/17 22:18 - Medications Medications: Current Medications Al Hydrox/Mg Hydrox/Simethicone (Maalox 30 Ml) 30 ml PO TID PRN PRN Reason: Indigestion / Heartburn Amlodipine Besylate (Norvasc) 10 mg PO DAILY [facility] Chlordiazepoxide (Librium) 50 mg PO Q6 [facility] PRN Reason: Taper Stop: 06/29/17 17:59 Last Admin: 06/25/17 17:39 Dose: 50 mg Clonidine HCl (Catapres) 0.1 mg PO Q4H PRN PRN Reason: Symptoms of alcohol withdrawl Last Admin: 06/25/17 20:05 Dose: 0.1 mg Folic Acid (Folic Acid) 1 mg PO DAILY [facility] Last Admin: 06/25/17 09:49 Dose: 1 mg Gabapentin (Neurontin) 100 mg PO TID [facility] Last Admin: 06/25/17 17:33 Dose: 100 mg Haloperidol (Haldol) 2 mg PO BID [facility] Last Admin: 06/25/17 17:33 Dose: 2 mg Lisinopril (Zestril) 5 mg PO BID [facility] Loperamide HCl (Imodium) 2 mg PO Q8 PRN PRN Reason: Diarrhea Lorazepam (Ativan) 1 mg PO Q4H PRN PRN Reason: Symptoms of alcohol withdrawl Last Admin: 06/25/17 14:37 Dose: 1 mg Multivitamins (Hexavitamin) 1 tab PO DAILY [facility] Last Admin: 06/25/17 09:49 Dose: 1 tab Ondansetron HCl (Zofran Tab) 4 mg PO Q8 PRN PRN Reason: Nausea/Vomiting Last Admin: 06/25/17 12:35 Dose: 4 mg Pantoprazole Sodium (Protonix Ec Tab) 40 mg PO DAILY [facility] Last Admin: 06/25/17 09:49 Dose: 40 mg Sertraline HCl (Zoloft) 50 mg PO DAILY [facility] Last Admin: 06/25/17 09:49 Dose: 50 mg Thiamine HCl (Vitamin B1 Tab) 100 mg PO DAILY [facility] Last Admin: 06/25/17 09:49 Dose: 100 mg Trazodone HCl (Desyrel) 50 mg PO HS PRN PRN Reason: Insomnia - Labs Labs: 06/25/17 07:34 06/25/17 07:34 - Additional Findings Additional findings: - Head Exam Head Exam: NORMAL INSPECTION - Eye Exam Eye Exam: EOMI - ENT Exam ENT Exam: Mucous Membranes Moist - Respiratory Exam Respiratory Exam: Clear to Ausculation Bilateral, NORMAL BREATHING PATTERN. absent: Rales, Rhonchi, Wheezes - Cardiovascular Exam Cardiovascular Exam: REGULAR RHYTHM, +S1, +S2 - GI/Abdominal Exam GI & Abdominal Exam: Soft, Normal Bowel Sounds. absent: Distended, Firm, Guarding, Rigid, Tenderness, Rebound - Extremities Exam Extremities Exam: absent: Pedal Edema, Tenderness - Back Exam Back Exam: absent: CVA tenderness (L), CVA tenderness (R) - Neurological Exam Neurological Exam: Alert, Awake, Oriented x3 - Psychiatric Exam Psychiatric exam: Normal Affect, Normal Mood - Skin Skin Exam: Intact, Normal Color, Warm Assessment and Plan - Assessment and Plan (Free Text) Plan: (1) Alcohol abuse Assessment & Plan: Ativan taper (Today is Day 2; active since 06/24/17) MVI 1 tab PO daily Folic acid 1 tab PO daily Thiamine 100mg PO daily Psychiatry on board Status: Acute (2) Alcohol withdrawal Assessment & Plan: Ativan taper (Today is Day 2; active since 06/24/17) MVI 1 tab PO daily Folic acid 1 tab PO daily Thiamine 100mg PO daily Psychiatry on boardDW Fela Sheets DO, PGY-1 Status: Acute (3) Transaminitis Assessment & Plan: Hepatitis panel: negative Abdominal US: atty infiltration of the liver. 1.5cm simple left renal cortical cyst. 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 Hamlin, Fela Wild DO, PGY-1 <Lianna Hamlin V - Last Filed: 06/26/17 11:30> Objective - Vital Signs/Intake and Output Vital Signs (last 24 hours): Temp Pulse Resp BP Pulse Ox 97.4 F L 84 20 145/96 H 98 06/26/17 08:00 06/26/17 08:00 06/26/17 08:00 06/26/17 08:00 06/26/17 08:00 - Medications Medications: Current Medications Al Hydrox/Mg Hydrox/Simethicone (Maalox 30 Ml) 30 ml PO TID PRN PRN Reason: Indigestion / Heartburn Amlodipine Besylate (Norvasc) 10 mg PO DAILY [facility] Last Admin: 06/26/17 09:40 Dose: 10 mg Chlordiazepoxide (Librium) 50 mg PO Q6 [facility] PRN Reason: Taper Stop: 06/29/17 17:59 Last Admin: 06/26/17 05:42 Dose: 50 mg Clonidine HCl (Catapres) 0.1 mg PO Q4H PRN PRN Reason: Symptoms of alcohol withdrawl Last Admin: 06/26/17 01:10 Dose: 0.1 mg Folic Acid (Folic Acid) 1 mg PO DAILY [facility] Last Admin: 06/26/17 09:40 Dose: 1 mg Gabapentin (Neurontin) 100 mg PO TID [facility] Last Admin: 06/26/17 09:40 Dose: 100 mg Haloperidol (Haldol) 2 mg PO BID [facility] Last Admin: 02/18/18 09:40 Dose: 2 mg Lisinopril (Zestril) 5 mg PO BID [facility] Last Admin: 06/26/17 09:41 Dose: 5 mg Loperamide HCl (Imodium) 2 mg PO Q8 PRN PRN Reason: Diarrhea Lorazepam (Ativan) 1 mg PO Q4H PRN PRN Reason: Symptoms of alcohol withdrawl Last Admin: 06/25/17 14:37 Dose: 1 mg Multivitamins (Hexavitamin) 1 tab PO DAILY [facility] Last Admin: 06/26/17 09:40 Dose: 1 tab Ondansetron HCl (Zofran Tab) 4 mg PO Q8 PRN PRN Reason: Nausea/Vomiting Last Admin: 06/25/17 12:35 Dose: 4 mg Pantoprazole Sodium (Protonix Ec Tab) 40 mg PO DAILY [facility] Last Admin: 06/26/17 09:41 Dose: 40 mg Sertraline HCl (Zoloft) 50 mg PO DAILY [facility] Last Admin: 06/26/17 09:41 Dose: 50 mg Thiamine HCl (Vitamin B1 Tab) 100 mg PO DAILY [facility] Last Admin: 06/26/17 09:40 Dose: 100 mg Trazodone HCl (Desyrel) 50 mg PO HS PRN PRN Reason: Insomnia - Labs Labs: 06/26/17 08:16 06/26/17 08:16 Assessment and Plan (1) Alcohol abuse Status: Acute (2) Alcohol withdrawal Status: Acute (3) Transaminitis Status: Acute (4) Hypertension Status: Chronic (5) Hypokalemia Status: Acute (6) Prophylactic measure Status: Acute Attending/Attestation - Attestation I have personally seen and examined this patient.: Yes I have fully participated in the care of the patient.: Yes I have reviewed all pertinent clinical information, including history, physical exam and plan: Yes Notes (Text): Patient seen, examined, case discussed with medical office representative. Patient seen on the sixth floor. Patient denies chest pain denies palpitations denies fever denies abdominal pain denies nausea denies vomiting denies problems with bowel habits. Patient does not want to go [facility]. patient reports that for per the facility does not support his metaphase physical practices such as thiago chi and his eccentric practices and in his words described. Patient is a practicing no and is aware that his practices can get misconstrued as abnormal. Patient is open to pastoral care consult. I have discussed with the psychiatrist in light of his unusual practices will evaluate him given his depression and refusal to go to [facility]. Patient likely has underlying uncontrolled blood pressure in addition to his alcohol withdrawal. Patient is started on 2 agents are Norvasc and lisinopril. Nurse Quevedo patient did not have any acute events overnight and only had mild tremors this morning. Tomorrow will be patient's day four alcohol taper. Consider discontinuing telemetry tomorrow given the patient is in the range for DTs including for today. We'll need to follow-up with psychiatry to determine when patient is stable for discharge. Please note patient has maintained sobriety for 5 years prior to this event. Patient reports he's been dealing with frustrations but he will not explained to be further what is going on with him. He will need to follow-up with social work in regards to Alcoholics Anonymous to continue alcohol cessation. Assessment/Plan (1) Alcohol abuse Assessment & Plan: * Ativan taper (Completed two days; active since 06/24/17-06/25/17) * Discussed with psychiatry yesterday, switched to Librium taper given minimal transaminitis and will need to monitor liver functions. Librium has a longer half-life which would better be suited for patient's withdrawal. Patient is on second day of Librium taper. But overall, today's day four from patient's last drink * MVI 1 tab PO daily * Folic acid 1 tab PO daily * Thiamine 100mg PO daily * Psychiatry on board Status: Acute (2) Alcohol withdrawal Assessment & Plan: * Ativan taper (Completed two days; active since 06/24/17-06/25/17) * Discussed with psychiatry yesterday, switched to Librium taper given minimal transaminitis and will need to monitor liver functions. Librium has a longer half-life which would better be suited for patient's withdrawal. Patient is on second day of Librium taper. But overall, today's day four from patient's last drink * MVI 1 tab PO daily * Folic acid 1 tab PO daily * Thiamine 100mg PO daily * Gabapentin 100mg PO TID * Psychiatry on board Status: Acute (3) Transaminitis Assessment & Plan: * Hepatitis panel: negative * Abdominal US: atty infiltration of the liver. 1.5cm simple left renal cortical cyst. No additional abnormality * Monitor while patient is on Librium. 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 Raza, who will come see the patient today in regards to his depression. patient does not want to go to [facility]. (06/26/17) Status: Chronic (8) Prophylactic measure Assessment & Plan: * Discontinued chemical anticoagulation patient has mild thrombocytopenia. * Protonix 40mg PO daily Status: Acute Disposition: When patient is stable per per psych, who need to establish care for his blood pressure and need to be monitored outpatient for his renal cyst. When social work becomes available please refer to patient to Alcoholics Anonymous.
[2017-06-26 08:24] LABS: BASO % 0.5 % (0.0-2.0); HEMOGLOBIN 13.8 g/dL (12.0-18.0); LYMPH # 0.8 K/uL (1.0-4.3); LYMPH % 20.9 % (20.0-40.0); MEAN CORPUSCULAR HGB CONC 34.8 g/dL (33.0-37.0); MONO # 0.4 K/uL (0.0-0.8); MONO % 10.1 % (0.0-10.0); NEUT # 2.4 K/uL (1.8-7.0); NEUT % 67.5 % (50.0-75.0); RBC 4.45 Mil/uL (4.40-5.90); RED CELL DISTRIBUTION WIDTH 12.8 % (11.5-14.5); WHITE BLOOD COUNT 3.6 K/uL (4.8-10.8)
[2017-06-26 08:47] LABS: ALB/GLOB RATIO 1.2 (1.0-2.1); ALBUMIN 3.7 g/dL (3.5-5.0); ALT/SGPT 82 U/L (21-72); AST/SGOT 70 U/L (17-59); BLOOD UREA NITROGEN 11 mg/dL (9-20); CALCIUM 8.7 mg/dl (8.6-10.4); GFR AFRICAN-AMERICAN > 60; GFR NON-AFRICAN AMERICAN > 60
[2017-06-26] MEDS: Multiple Vitamins Tab PO SCH (09:40)
[2017-06-26] MEDS: Pantoprazole 40 mg EC Tab PO SCH (09:41)
[2017-06-26] MEDS ORDERED: Alum-Mag Hydrox-Simethicone Susp (30 mL) PO ONE (13:48)
--- NOTE | 2017-06-26 19:08 | PCM.PYCHPN ---
Psychiatric Progress Note - Psychiatric Progress Note Patient seen today, length of contact: 15 minutes Patient Chief Complaint: "My withdrawal symptoms are better" Problems Identified/Issues Discussed: Pt was seen and evaluated. Chart reviewed and nurse input received. Pt stated that he is feeling better. He reported improvement in his AH and VH. He reported improvement in anxiety symptoms, etoh withdrawal symptoms. He needs stabilization on medication. He denied SI, HI, intent or plan. He is AAOx3. His BP is also improving. DSM 5 Symptoms Update: Etoh use disorder, severe, dependence, withdrawal symptoms, Bipolar disorder Medication Change: Yes (d/c ativan, start librium) Medical Record Reviewed: Yes Mental Status Examination - Cognitive Function Orientation: Person, Place, Situation, Time Memory: Intact Attention: WNL Concentration: Poor Association: WNL Fund of Knowledge: WNL Decription of patient's judgement and insights: Improving/improving - Mood Mood: Depressed, Anxious - Affect Affect: Constricted, Flat, Depressed - Speech Speech: Slurred - Formal Thought Process Formal Thought Process: Circumstantial Psychotic Thoughts and Behaviors: +ve Auditory hallucination, but he does not appeared internally preoccupied or responding to stimuli Additional comments: Superficially cooperative - Suicidal Ideation Suicidal Ideation: No Plan: Denied - Homicidal Ideation Homicidal Ideation: No Plan: denied Goal/Treatment Plan - Goal/Treatment Plan Need for Continued Stay: Severe depression anxiety, Discharge may exacerbated symptoms Progress Toward Problem(s) and Goals/Treatment Plan: Continue current treatment as per primary team. Psychoeducation provided regarding diagnosis, treatment, meds benefits, side effects, risk and alternative choices. Pt verbalized understanding and agree with the treatment plan. Therapy in milieu. Monitor vitals. Continue Ativan for alcohol withdrawal symptoms. Increase Gabapentin for mood stabilization. Estimated Date of D/C: 06/29/17
[2017-06-27] MEDS: Multiple Vitamins Tab PO SCH (09:35)
[2017-06-27] MEDS: Pantoprazole 40 mg EC Tab PO SCH (09:35)
[2017-06-27 12:25] LABS: BASO % 0.4 % (0.0-2.0); EOS # 0.1 K/uL (0.0-0.7); EOS % 1.4 % (0.0-4.0); HEMOGLOBIN 14.7 g/dL (12.0-18.0); LYMPH % 18.2 % (20.0-40.0); MEAN CELL VOLUME 89.5 fL (80.0-94.0); MEAN CORPUSCULAR HEMOGLOBIN 31.3 pg (27.0-31.0); MEAN PLATELET VOLUME 7.9 fL (7.2-11.7); MONO # 0.7 K/uL (0.0-0.8); MONO % 12.9 % (0.0-10.0); NEUT # 3.5 K/uL (1.8-7.0); NEUT % 67.1 % (50.0-75.0); NRBC % 0.2 % (0.0-2.0); RBC 4.69 Mil/uL (4.40-5.90); RED CELL DISTRIBUTION WIDTH 13.3 % (11.5-14.5); WHITE BLOOD COUNT 5.2 K/uL (4.8-10.8)
[2017-06-27 12:46] LABS: ALB/GLOB RATIO 1.2 (1.0-2.1); ALBUMIN 4.1 g/dL (3.5-5.0); ALT/SGPT 112 U/L (21-72); AST/SGOT 84 U/L (17-59); BLOOD UREA NITROGEN 14 mg/dL (9-20); CALCIUM 9.1 mg/dl (8.6-10.4); GFR AFRICAN-AMERICAN > 60; GFR NON-AFRICAN AMERICAN > 60; MAGNESIUM 2.2 mg/dL (1.6-2.3)
--- NOTE | 2017-06-27 14:55 | CP.PCM.PN ---
<Carrington Mcnally Una - Last Filed: 06/27/17 18:12> Subjective - Date & Time of Evaluation Date of Evaluation: 06/27/17 Time of Evaluation: 09:20 - Subjective Subjective: Medicine progress note ( Dr. Crio Vo's service) Patient was seen and examined at bedside. Patient reports that he is doing well and has no complaints. Patient denies chest pain, SOB, nausea, vomiting, abdominal pain, fever, chills, diarrhea, diaphoresis, auditory and visual hallucination. Objective - Vital Signs/Intake and Output Vital Signs (last 24 hours): Temp Pulse Resp BP Pulse Ox 97.7 F 92 H 18 148/90 98 06/27/17 07:00 06/27/17 12:00 06/27/17 07:00 06/27/17 09:34 06/27/17 07:00 Intake and Output: 06/27/17 06/27/17 06:59 18:59 Intake Total 400 450 Balance 400 450 - Medications Medications: Current Medications Al Hydrox/Mg Hydrox/Simethicone (Maalox 30 Ml) 30 ml PO TID PRN PRN Reason: Indigestion / Heartburn Amlodipine Besylate (Norvasc) 10 mg PO DAILY [facility] Last Admin: 06/27/17 09:36 Dose: 10 mg Chlordiazepoxide (Librium) 25 mg PO TID [facility] PRN Reason: Taper Stop: 06/29/17 17:59 Last Admin: 06/27/17 13:41 Dose: 25 mg Clonidine HCl (Catapres) 0.1 mg PO Q4H PRN PRN Reason: Symptoms of alcohol withdrawl Last Admin: 06/26/17 01:10 Dose: 0.1 mg Folic Acid (Folic Acid) 1 mg PO DAILY [facility] Last Admin: 06/27/17 09:35 Dose: 1 mg Gabapentin (Neurontin) 300 mg PO TID [facility] Last Admin: 06/27/17 13:43 Dose: 300 mg Haloperidol (Haldol) 2 mg PO BID [facility] Last Admin: 06/27/17 09:35 Dose: 2 mg Lisinopril (Zestril) 5 mg PO BID [facility] Last Admin: 06/27/17 09:35 Dose: 5 mg Loperamide HCl (Imodium) 2 mg PO Q8 PRN PRN Reason: Diarrhea Lorazepam (Ativan) 1 mg PO Q4H PRN PRN Reason: Symptoms of alcohol withdrawl Last Admin: 06/25/17 14:37 Dose: 1 mg Multivitamins (Hexavitamin) 1 tab PO DAILY [facility] Last Admin: 06/27/17 09:35 Dose: 1 tab Ondansetron HCl (Zofran Tab) 4 mg PO Q8 PRN PRN Reason: Nausea/Vomiting Last Admin: 06/25/17 12:35 Dose: 4 mg Pantoprazole Sodium (Protonix Ec Tab) 40 mg PO DAILY [facility] Last Admin: 06/27/17 09:35 Dose: 40 mg Sertraline HCl (Zoloft) 50 mg PO DAILY [facility] Last Admin: 06/27/17 09:35 Dose: 50 mg Thiamine HCl (Vitamin B1 Tab) 100 mg PO DAILY [facility] Last Admin: 06/27/17 09:35 Dose: 100 mg Trazodone HCl (Desyrel) 50 mg PO HS PRN PRN Reason: Insomnia - Labs Labs: 06/27/17 11:47 06/27/17 11:47 - Constitutional Appears: Well, No Acute Distress - Head Exam Head Exam: ATRAUMATIC, NORMAL INSPECTION - Eye Exam Eye Exam: EOMI, Normal appearance - ENT Exam ENT Exam: Mucous Membranes Moist - Respiratory Exam Respiratory Exam: Clear to Ausculation Bilateral, NORMAL BREATHING PATTERN. absent: Prolonged Expiratory Phase, Wheezes, Respiratory Distress, Stridor - Cardiovascular Exam Cardiovascular Exam: REGULAR RHYTHM, +S1, +S2. absent: Murmur - GI/Abdominal Exam GI & Abdominal Exam: Soft, Normal Bowel Sounds. absent: Distended, Firm, Guarding, Rigid, Tenderness - Extremities Exam Extremities Exam: Normal Inspection. absent: Calf Tenderness, Pedal Edema - Neurological Exam Neurological Exam: Alert, Awake, Oriented x3 - Psychiatric Exam Psychiatric exam: Normal Affect, Normal Mood - Skin Skin Exam: Normal Color Assessment and Plan (1) Alcohol withdrawal Assessment & Plan: Psychiatry, Dr. Hall on board Librium taper (active since 06/25/17) Ativan 1mg PO Q4H PRN Multivitamin 1 tab PO daily Folic acid 1 tab PO daily Thiamine 100mg PO daily Zofran 4mg PO Q8 prn ( for symptoms nausea) Imodium 2mg PO Q8H prn ( for symptoms of diarrhea) Status: Acute (2) Alcohol abuse Status: Acute (3) Major depressive disorder with psychotic features Assessment & Plan: -CBT -Psychoeducation -Supportive therapy, individual therapy -Zoloft 50 mg by mouth daily -Trazodone 50 mg by mouth daily at bedtime -Neurontin 100 mg by mouth 3 times a day Status: Acute (4) Transaminitis Assessment & Plan: Hepatitis panel: negative Abdominal US: atty infiltration of the liver. 1.5cm simple left renal cortical cyst. No additional abnormality Status: Acute (5) Hypertension Assessment & Plan: Clonidine 0.1mg PO Q4H prn Norvasc 10mg PO daily Status: Chronic (6) Hypokalemia Assessment & Plan: Resolved Continue to monitor with labs Status: Acute (7) Prophylactic measure Assessment & Plan: GI: Protonix 40mg PO daily DVT: SCDs and ambulating All plans and management discussed with attending Status: Acute <Dexter Vo - Last Filed: 06/27/17 18:56> Objective - Vital Signs/Intake and Output Vital Signs (last 24 hours): Temp Pulse Resp BP Pulse Ox 98.1 F 96 H 20 104/69 97 06/27/17 15:53 06/27/17 18:00 06/27/17 15:53 06/27/17 15:53 06/27/17 15:53 Intake and Output: 06/27/17 06/27/17 06:59 18:59 Intake Total 400 450 Balance 400 450 - Medications Medications: Current Medications Al Hydrox/Mg Hydrox/Simethicone (Maalox 30 Ml) 30 ml PO TID PRN PRN Reason: Indigestion / Heartburn Amlodipine Besylate (Norvasc) 10 mg PO DAILY [facility] Last Admin: 06/27/17 09:36 Dose: 10 mg Chlordiazepoxide (Librium) 25 mg PO BID [facility] PRN Reason: Taper Stop: 06/29/17 17:59 Last Admin: 06/27/17 17:50 Dose: 25 mg Clonidine HCl (Catapres) 0.1 mg PO Q4H PRN PRN Reason: Symptoms of alcohol withdrawl Last Admin: 06/26/17 01:10 Dose: 0.1 mg Folic Acid (Folic Acid) 1 mg PO DAILY [facility] Last Admin: 06/27/17 09:35 Dose: 1 mg Gabapentin (Neurontin) 300 mg PO TID [facility] Last Admin: 06/27/17 17:50 Dose: 300 mg Haloperidol (Haldol) 2 mg PO BID [facility] Last Admin: 06/27/17 17:50 Dose: 2 mg Lisinopril (Zestril) 5 mg PO BID [facility] Last Admin: 06/27/17 17:50 Dose: 5 mg Loperamide HCl (Imodium) 2 mg PO Q8 PRN PRN Reason: Diarrhea Lorazepam (Ativan) 1 mg PO Q4H PRN PRN Reason: Symptoms of alcohol withdrawl Last Admin: 06/25/17 14:37 Dose: 1 mg Multivitamins (Hexavitamin) 1 tab PO DAILY [facility] Last Admin: 06/27/17 09:35 Dose: 1 tab Ondansetron HCl (Zofran Tab) 4 mg PO Q8 PRN PRN Reason: Nausea/Vomiting Last Admin: 06/25/17 12:35 Dose: 4 mg Pantoprazole Sodium (Protonix Ec Tab) 40 mg PO DAILY [facility] Last Admin: 06/27/17 09:35 Dose: 40 mg Sertraline HCl (Zoloft) 50 mg PO DAILY [facility] Last Admin: 06/27/17 09:35 Dose: 50 mg Thiamine HCl (Vitamin B1 Tab) 100 mg PO DAILY [facility] Last Admin: 06/27/17 09:35 Dose: 100 mg Trazodone HCl (Desyrel) 50 mg PO HS PRN PRN Reason: Insomnia - Labs Labs: 06/27/17 11:47 06/27/17 11:47 Attending/Attestation - Attestation I have personally seen and examined this patient.: Yes I have fully participated in the care of the patient.: Yes I have reviewed all pertinent clinical information, including history, physical exam and plan: Yes Notes (Text): 06/27/17 18:53 Patient was seen and examined at 12:15 PM 06/27/17 Bed 656 A with Partner Jesus Gagnon present. Exam, assessment and plan were gone over with the resident. Blood pressure better under control with Norvasc increased to 10 mg 1x/day on Patient will need repeat U/S Renal in 6 to 12 months for 1.5 cm Left Renal Cyst follow up Patient is on Librium Taper (NOT Ativan Taper). If he continues to improve then we will likely discharge patient on morning of . Dexter Vo D.O.
[2017-06-27 15:54] VITALS: RESP 20
[2017-06-28 06:42] LABS: BASO % 0.3 % (0.0-2.0); EOS # 0.1 K/uL (0.0-0.7); EOS % 1.3 % (0.0-4.0); HEMOGLOBIN 14.3 g/dL (12.0-18.0); LYMPH % 21.5 % (20.0-40.0); MEAN CELL VOLUME 89.8 fL (80.0-94.0); MEAN CORPUSCULAR HEMOGLOBIN 31.3 pg (27.0-31.0); MEAN CORPUSCULAR HGB CONC 34.8 g/dL (33.0-37.0); MONO # 0.6 K/uL (0.0-0.8); MONO % 12.4 % (0.0-10.0); NEUT # 3.1 K/uL (1.8-7.0); NEUT % 64.5 % (50.0-75.0); RBC 4.56 Mil/uL (4.40-5.90); RED CELL DISTRIBUTION WIDTH 13.3 % (11.5-14.5); WHITE BLOOD COUNT 4.8 K/uL (4.8-10.8)
[2017-06-28 06:55] LABS: ALB/GLOB RATIO 1.2 (1.0-2.1); ALBUMIN 3.9 g/dL (3.5-5.0); ALT/SGPT 106 U/L (21-72); AST/SGOT 60 U/L (17-59); BLOOD UREA NITROGEN 14 mg/dL (9-20); CALCIUM 8.9 mg/dl (8.6-10.4); GFR AFRICAN-AMERICAN > 60; GFR NON-AFRICAN AMERICAN > 60; MAGNESIUM 2.2 mg/dL (1.6-2.3)
[2017-06-28 08:35] VITALS: TEMP 97.8; O2SAT 98
--- NOTE | 2017-06-28 09:46 | CP.PCM.DIS ---
<Carrington Mcnally E - Last Filed: 06/28/17 17:24> Provider - Provider Date of Admission: 06/24/17 01:48 Attending physician: Lianna Hamlin DO Time Spent in preparation of Discharge (in minutes): 35 Diagnosis - Discharge Diagnosis (1) Alcohol withdrawal Status: Acute (2) Alcohol abuse Status: Acute (3) Major depressive disorder with psychotic features Status: Acute (4) Transaminitis Status: Acute (5) Hypertension Status: Chronic (6) Hypokalemia Status: Acute (7) Prophylactic measure Status: Acute Hospital Course - Lab Results Lab Results: Most Recent Lab Values WBC 4.8 K/uL (4.8-10.8) 06/28/17 06:29 RBC 4.56 Mil/uL (4.40-5.90) 06/28/17 06:29 Hgb 14.3 g/dL (12.0-18.0) 06/28/17 06:29 Hct 41.0 % (35.0-51.0) 06/28/17 06:29 MCV 89.8 fL (80.0-94.0) 06/28/17 06:29 MCH 31.3 pg (27.0-31.0) H 06/28/17 06:29 MCHC 34.8 g/dL (33.0-37.0) 06/28/17 06:29 RDW 13.3 % (11.5-14.5) 06/28/17 06:29 Plt Count 182 K/uL (130-400) 06/28/17 06:29 MPV 8.0 fL (7.2-11.7) 06/28/17 06: Neut % (Auto) 64.5 % (50.0-75.0) 06/28/17 06: Lymph % (Auto) 21.5 % (20.0-40.0) 06/28/17 06: [place] % (Auto) 12.4 % (0.0-10.0) H 06/28/17 06:29 Eos % (Auto) 1.3 % (0.0-4.0) 06/28/17 06:29 Baso % (Auto) 0.3 % (0.0-2.0) 06/28/17 06:29 Neut # (Auto) 3.1 K/uL (1.8-7.0) 06/28/17 06:29 Lymph # (Auto) 1.0 K/uL (1.0-4.3) 06/28/17 06:29 [place] # (Auto) 0.6 K/uL (0.0-0.8) 06/28/17 06:29 Eos # (Auto) 0.1 K/uL (0.0-0.7) 06/28/17 06:29 Baso # (Auto) 0.0 K/uL (0.0-0.2) 06/28/17 06:29 Differential Comment 06/26/17 08:16 Sodium 133 mmol/L (132-148) 06/28/17 06:29 Potassium 4.2 mmol/L (3.6-5.2) 06/28/17 06:29 Chloride 98 mmol/L (98-107) 06/28/17 06:29 Carbon Dioxide 25 mmol/L (22-30) 06/28/17 06:29 Anion Gap 14 (10-20) 06/28/17 06:29 BUN 14 mg/dL (9-20) 06/28/17 06:29 Creatinine 0.8 mg/dL (0.8-1.5) 06/28/17 06:29 Est GFR ( Amer) > 60 06/28/17 06:29 Est GFR (Non-Af Amer) > 60 06/28/17 06:29 Random Glucose 102 mg/dL (75-110) 06/28/17 06:29 Calcium 8.9 mg/dl (8.6-10.4) 06/28/17 06:29 Phosphorus 4.3 mg/dL (2.5-4.5) 06/28/17 06:29 Magnesium 2.2 mg/dL (1.6-2.3) 06/28/17 06:29 Total Bilirubin 0.6 mg/dL (0.2-1.3) 06/28/17 06:29 AST 60 U/L (17-59) H D 06/28/17 06:29 ALT 106 U/L (21-72) H 06/28/17 06:29 Alkaline Phosphatase 80 U/L (38-126) 06/28/17 06:29 Total Protein 7.1 g/dL (6.3-8.3) 06/28/17 06:29 Albumin 3.9 g/dL (3.5-5.0) 06/28/17 06:29 Globulin 3.3 gm/dL (2.2-3.9) 06/28/17 06:29 Albumin/Globulin Ratio 1.2 (1.0-2.1) 06/28/17 06:29 Hepatitis A IgM Ab Negative (NEGATIVE) 06/24/17 09:53 Hep Bs Antigen Negative (NEGATIVE) 06/24/17 09:53 Hep B Core IgM Ab Negative (NEGATIVE) 06/24/17 09:53 Hepatitis C Antibody Negative (NEGATIVE) 06/24/17 09:53 - Hospital Course Hospital Course: HPI ( As per admission): Patient is a 51 year old male with a past medical history of HTN and alcoholism , who presents for alcohol detox. Patient reports drinking "6-12 cans of malt liquor and a couple of pints of vodka" daily. He has been drinking heavily for over 30 years, but has increased his drinking over the past 2 weeks. His last drink was the in early morning before going to the hospital. Patient's longest period of sobriety was 5 years. Patient reports going to rehab approximately 8 times in the past. Patient admits to nausea, vomiting, constipation, and feeling "out of it". Patient denies tremors, hallucinations, chest pain, abdominal pain, shortness of breath, palpitations, headaches, fevers , chills. Hospital Course: Patient was originally admitted to psychiatry unit (Detox) for alcohol withdrawal, however, patient was transferred to telemetry and admitted to the hospitalist service due to severe alcohol withdrawal with tremors and hypertensive urgency. Patient was managed on appropriate medications for his withdrawal and hx of major depression with psychotic features. Patient's blood pressure was also managed on appropriate medication. Patient did well over the course of admission and had no acute issues. During patient's hospital course, patient's chemistry showed some electrolyte abnormalities that was repeleted appropriately and transaminitis. Patient remained medically stable and was discharge upon clearance by his medical team. Pertinent imaging/Labs: Abdominal US: atty infiltration of the liver. 1.5cm simple left renal cortical cyst. No additional abnormality Hepatitis panel: negative This is a brief summary of events. For complete course, please refer to the medical records. Discharge Exam - Head Exam Head Exam: ATRAUMATIC, NORMAL INSPECTION - Eye Exam Eye Exam: EOMI, Normal appearance - ENT Exam ENT Exam: Mucous Membranes Moist - Respiratory Exam Respiratory Exam: Clear to PA & Lateral, NORMAL BREATHING PATTERN. absent: Prolonged Expiratory Phase, Rales, Wheezes, Respiratory Distress, Stridor - Cardiovascular Exam Cardiovascular Exam: REGULAR RHYTHM, +S1, +S2. absent: +S4, Systolic Murmur - GI/Abdominal Exam GI & Abdominal Exam: Normal Bowel Sounds, Soft. absent: Diminished Bowel Sounds , Distended, Firm, Guarding, Tenderness - Extremities Exam Extremities exam: normal inspection - Back Exam Back exam: NORMAL INSPECTION. absent: CVA tenderness (L), CVA tenderness (R) - Neurological Exam Neurological exam: Alert, Oriented x3 - Psychiatric Exam Psychiatric exam: Normal Affect, Normal Mood - Skin Skin Exam: Normal Color Discharge Plan - Discharge Medications Prescriptions: amLODIPine [Norvasc] 10 mg PO DAILY 30 Days #30 tab chlordiazePOXIDE [Librium] 25 mg PO BID #2 cap Lisinopril [Zestril] 5 mg PO BID 30 Days #60 tab Sertraline [Zoloft] 50 mg PO DAILY 30 Days #30 tab - Follow Up Plan Condition: FAIR Disposition: HOME/ ROUTINE Instructions: Heart Healthy Diet, High Blood Pressure (DC), Low Salt Diet, Alcohol Abuse and Alcoholism (DC), Amlodipine, Chlordiazepoxide, Lisinopril, Sertraline Additional Instructions: Please discharge patient as he is medically stable Please take the following medications as instructed and prescribed: 1. Librium 25mg PO 1 tablet by mouth at 10pm tonight and a second tablet at 10am tomorrow morning, 06/29/2016 2. Lisinopril 5mg PO BID (Take 2 tablets daily, one at breakfast and one at Dinner) 3. Zoloft 5mg 1 tablet by mouth daily at breakfast Additional Instructions: 1. F/u with a kidney ultrasound in 6 months for a 1.5 cm Left Renal Cyst noted during the course of admission 2. Please follow up with psychiatry outpatient 3. Please follow up with [facility] [place], within one week of discharge in order to establish care 4. Please follow up with the nearest AA program in your area Please return to the hospital if symptoms worsens Please take care Referrals: Alcoholics Anonymous [Outside] [facility] [Outside] <Dexter Vo Toby - Last Filed: 06/28/17 19:25> Provider - Provider Date of Admission: 06/24/17 01:48 Attending physician: Lianna Hamlin, [facility] Course - Lab Results Lab Results: Most Recent Lab Values WBC 4.8 K/uL (4.8-10.8) 06/28/17 06:29 RBC 4.56 Mil/uL (4.40-5.90) 06/28/17 06:29 Hgb 14.3 g/dL (12.0-18.0) 06/28/17 06:29 Hct 41.0 % (35.0-51.0) 06/28/17 06:29 MCV 89.8 fL (80.0-94.0) 06/28/17 06:29 MCH 31.3 pg (27.0-31.0) H 06/28/17 06:29 MCHC 34.8 g/dL (33.0-37.0) 06/28/17 06:29 RDW 13.3 % (11.5-14.5) 06/28/17 06:29 Plt Count 182 K/uL (130-400) 06/28/17 06:29 MPV 8.0 fL (7.2-11.7) 06/28/17 06:29 Neut % (Auto) 64.5 % (50.0-75.0) 06/28/17 06:29 Lymph % (Auto) 21.5 % (20.0-40.0) 06/28/17 06:29 [place] % (Auto) 12.4 % (0.0-10.0) H 06/28/17 06:29 Eos % (Auto) 1.3 % (0.0-4.0) 06/28/17 06:29 Baso % (Auto) 0.3 % (0.0-2.0) 06/28/17 06:29 Neut # (Auto) 3.1 K/uL (1.8-7.0) 06/28/17 06:29 Lymph # (Auto) 1.0 K/uL (1.0-4.3) 06/28/17 06:29 [place] # (Auto) 0.6 K/uL (0.0-0.8) 06/28/17 06:29 Eos # (Auto) 0.1 K/uL (0.0-0.7) 06/28/17 06:29 Baso # (Auto) 0.0 K/uL (0.0-0.2) 06/28/17 06:29 Differential Comment 06/26/17 08:16 Sodium 133 mmol/L (132-148) 06/28/17 06:29 Potassium 4.2 mmol/L (3.6-5.2) 06/28/17 06:29 Chloride 98 mmol/L (98-107) 06/28/17 06:29 Carbon Dioxide 25 mmol/L (22-30) 06/28/17 06:29 Anion Gap 14 (10-20) 06/28/17 06:29 BUN 14 mg/dL (9-20) 06/28/17 06:29 Creatinine 0.8 mg/dL (0.8-1.5) 06/28/17 06:29 Est GFR ( Amer) > 60 06/28/17 06:29 Est GFR (Non-Af Amer) > 60 06/28/17 06:29 Random Glucose 102 mg/dL (75-110) 06/28/17 06:29 Calcium 8.9 mg/dl (8.6-10.4) 06/28/17 06:29 Phosphorus 4.3 mg/dL (2.5-4.5) 06/28/17 06:29 Magnesium 2.2 mg/dL (1.6-2.3) 06/28/17 06:29 Total Bilirubin 0.6 mg/dL (0.2-1.3) 06/28/17 06:29 AST 60 U/L (17-59) H D 06/28/17 06:29 ALT 106 U/L (21-72) H 06/28/17 06:29 Alkaline Phosphatase 80 U/L (38-126) 06/28/17 06:29 Total Protein 7.1 g/dL (6.3-8.3) 06/28/17 06:29 Albumin 3.9 g/dL (3.5-5.0) 06/28/17 06:29 Globulin 3.3 gm/dL (2.2-3.9) 06/28/17 06:29 Albumin/Globulin Ratio 1.2 (1.0-2.1) 06/28/17 06:29 Hepatitis A IgM Ab Negative (NEGATIVE) 06/24/17 09:53 Hep Bs Antigen Negative (NEGATIVE) 06/24/17 09:53 Hep B Core IgM Ab Negative (NEGATIVE) 06/24/17 09:53 Hepatitis C Antibody Negative (NEGATIVE) 06/24/17 09:53 Attending/Attestation - Attestation I have personally seen and examined this patient.: Yes I have fully participated in the care of the patient.: Yes I have reviewed all pertinent clinical information, including history, physical exam and plan: Yes Notes (Text): 06/28/17 19:22 All discharge instructions were thoroughly gone over with the patient and his partner. Dexter Vo D.O.
[2017-06-28 10:27] VITALS: BP 143/94; PULSE 101
[2017-06-28] MEDS: Multiple Vitamins Tab PO SCH (10:27)
[2017-06-28] MEDS: Pantoprazole 40 mg EC Tab PO SCH (10:27)
== END 2017-06-28 14:05 | disposition home or self-care (01) | DRG 895 ==
LOC: C.ER 19:24 → C.9E 06-24 01:48 → C.5S 06-24 07:08 → C.5E 06-24 20:30 → C.6T 06-25 21:28
PROVIDERS: ADMIT Hospitalist; ATTEND Hospitalist
PROC: HZ2ZZZZ Detoxification Services for Substance Abuse Treatment (ICD-10-PCS; principal; 2017-06-24)
PROC: HZ52ZZZ Individual Psychotherapy for Substance Abuse Treatment, Cognitive-Behavioral (ICD-10-PCS; 2017-06-24)
PROC: HZ59ZZZ Individual Psychotherapy for Substance Abuse Treatment, Supportive (ICD-10-PCS; 2017-06-24)
PROC: HZ56ZZZ Individual Psychotherapy for Substance Abuse Treatment, Psychoeducation (ICD-10-PCS; 2017-06-24)
PROC: GZ58ZZZ Individual Psychotherapy, Cognitive-Behavioral (ICD-10-PCS; 2017-06-24)
PROC: GZ56ZZZ Individual Psychotherapy, Supportive (ICD-10-PCS; 2017-06-24)
DX: F10.230 Alcohol dependence with withdrawal, uncomplicated (principal); F33.3 Major depressive disorder, recurrent, severe with psychotic symptoms; N28.1 Cyst of kidney, acquired; E87.6 Hypokalemia; I10 Essential (primary) hypertension; Y90.9 Presence of alcohol in blood, level not specified